=== PATIENT | female | born 1995 | race American Indian/Alaskan Native ===

== ENCOUNTER 2022-06-02 23:14 | Emergency (ER) | payer SELFPAY ==
[2022-06-03] MEDS ORDERED: FAMOTIDINE 20 MG TAB PO ONE (04:59)
[2022-06-03] MEDS ORDERED: LIDOCAINE-MPF (1%) 10 MG/1 ML VIAL 5 ML INFILTRATI ONE (04:59)
[2022-06-03] MEDS ORDERED: AZITHROMYCIN 250 MG TAB PO ONE (04:59)
[2022-06-03] MEDS ORDERED: diphenhydrAMINE 25 MG CAP PO ONE (04:59)
--- NOTE | 2022-06-03 06:02 | Emergency Department Report ---
ED Female HPI - General Chief complaint: Urogenital-Female Stated complaint: HIVES ON BODY Time Seen by Provider: 06/03/22 05:12 Source: patient Mode of arrival: Ambulatory Limitations: No Limitations - History of Present Illness Initial comments: Is a 26-year-old female who presents for STD exposure. States her partner was positive for chlamydia treated on yesterday. Patient denies fevers chills no vaginal discharge no abdominal pain no nausea or vomiting. This complaint evolves to provider at this time initial presentation was for allergic reaction to cleaning chemicals exposed at work. States mild itching there is no hives no fevers no chills no nausea no vomiting no shortness of breath no wheezing. MD Complaint: possible STD - Related Data Previous Rx's Medication Instructions Recorded Last Taken Type metroNIDAZOLE [Flagyl] 500 mg PO BID 7 Days #14 tab 06/03/22 Unknown Rx Allergies Allergy/AdvReac Type Severity Reaction Status Date / Time No Known Allergies Allergy Verified 06/03/22 00:05 ED Review of Systems ROS: Stated complaint: HIVES ON BODY Other details as noted in HPI Constitutional: denies: chills, fever Eyes: denies: eye pain, eye discharge, vision change ENT: as per HPI Respiratory: denies: cough, shortness of breath, wheezing Cardiovascular: denies: chest pain, palpitations Endocrine: no symptoms reported Gastrointestinal: denies: abdominal pain, nausea, diarrhea Genitourinary: denies: urgency, dysuria, frequency, hematuria, discharge Musculoskeletal: denies: back pain, joint swelling, arthralgia Skin: denies: rash, lesions Neurological: denies: headache, weakness, paresthesias Psychiatric: denies: anxiety, depression Hematological/Lymphatic: denies: easy bleeding, easy bruising ED Past Medical Hx - Medications Home Medications: Home Medications Medication Instructions Recorded Confirmed Last Taken Type metroNIDAZOLE [Flagyl] 500 mg PO BID 7 Days #14 tab 06/03/22 Unknown Rx ED Physical Exam - General Limitations: No Limitations General appearance: alert, in no apparent distress - Head Head exam: Present: normocephalic, normal inspection - Eye Eye exam: Present: PERRL, EOMI Pupils: Present: normal accommodation - ENT ENT exam: Present: normal orophraynx, mucous membranes moist - Neck Neck exam: Present: normal inspection, full ROM. Absent: tenderness, lymphad enopathy - Respiratory Respiratory exam: Present: normal lung sounds bilaterally. Absent: respiratory distress, wheezes - Cardiovascular Cardiovascular Exam: Present: regular rate, normal rhythm, normal heart sounds. Absent: systolic murmur, diastolic murmur, rubs, gallop - GI/Abdominal GI/Abdominal exam: Present: soft, normal bowel sounds. Absent: distended, tenderness - Rectal Rectal exam: Present: deferred - External exam: Present: other (Deferred per patient) - Extremities Exam Extremities exam: Present: normal inspection, full ROM, normal capillary refill. Absent: tenderness - Back Exam Back exam: Present: normal inspection, full ROM. Absent: CVA tenderness (R), CVA tenderness (L) - Neurological Exam Neurological exam: Present: alert, oriented X3, CN II-XII intact - Expanded Neurological Exam Expanded Patient oriented to: Present: person, place, time Speech: Present: fluid speech Best Eye Response (Callie): (4) open spontaneously Best Motor Response ([place]ie): (6) obeys commands Best Verbal Response ([place]): (5) oriented Callie Total: 15 - Psychiatric Psychiatric exam: Present: normal affect, normal mood - Skin Skin exam: Present: warm, dry, intact, normal color, urticaria. Absent: rash (No rash noted), erythema ED Course Vital Signs 06/03/22 00:02 Temperature 98.4 F Pulse Rate 73 Respiratory 18 Rate Blood Pressure 128/49 O2 Sat by Pulse 97 Oximetry ED Medical Decision Making - Medical Decision Making Plan treat for presumptive STI, DC to home with prescriptions, follow-up with health department for HSV and HIV screening. Return to emergency department should symptoms worsen. Patient verbalized agreement and understanding of discharge plan patient DC'd home in stable condition at this time. Critical care attestation.: If time is entered above; I have spent that time in minutes in the direct care of this critically ill patient, excluding procedure time. ED Disposition Clinical Impression: Exposure to STD Disposition: 01 HOME / SELF CARE / HOMELESS Is pt being admited?: No Does the pt Need Aspirin: No Condition: Stable Instructions: Safe Sex Additional Instructions: Take medications as prescribed, do not drink alcohol with this medication, follow-up with health department today for HSV and HIV screening, return to em ergency department should symptoms worsen. Prescriptions: metroNIDAZOLE [Flagyl] 500 mg PO BID 7 Days #14 tab Referrals: [facility] Depart [Outside] - 3-5 Days Forms: Work/School Release Form(ED) Time of Disposition: 06:08
[2022-06-03 06:19] VITALS: BP 123/56
== END 2022-06-03 06:33 | disposition home or self-care (01) ==
LOC: ED 23:14
DX: L50.9 Urticaria, unspecified (principal); Z20.2 Contact with and (suspected) exposure to infections with a predominantly sexual mode of transmission
CPT/HCPCS: 96372; 99282; J0696; J3490